=== PATIENT | female | born 1955 | race Caucasian/White ===

== ENCOUNTER 2018-11-20 12:20 | Emergency (ER) | payer OTHER ==
[2018-11-20 13:41] LABS: Urine Appearance Clear; Urine Bacteria Absent (Absent); Urine Bilirubin Negative (Negative); Urine Blood Negative (Negative); Urine Color Straw; Urine Glucose Negative (Negative); Urine Ketones Negative (Negative); Urine Nitrite Negative (Negative); Urine Protein Negative (Negative); Urine Red Blood Cell Absent (Absent); Urine Specific Gravity 1.004 (1.010-1.030); Urine Urobilinogen Negative (Negative); Urine White Blood Cell 2+(11-20/hpf) (Absent)
--- NOTE | 2018-11-20 13:49 | ED ---
GI/ HPI - HPI Summary HPI Summary: Patient is a 63 y/o F presenting to ED with complaints of dysuria, cloudy urine , and increased urgency of urination for the past few weeks. She also notes right lower back pain. Per triage, "Pt also c/o back pain but has chronic back pain so she is unsure if this is related or not". No fever, no N/V is reported. She denies PMHx of diabetes. Patient notes that she tried monostat, but reports that this only aggravated Sx. Patient has attempted to see OBGYN but states that she could not be seen until three months from present. On triage, pain is rated 6/10, nothing is noted to aggravate/alleviate Sx. Home medications and allergies are reviewed. - History of Current Complaint Chief Complaint: EDUrogenitalProblems Time Seen by Provider: 11/20/18 13:30 Stated Complaint: BURNING/CLOUDY WHEN URINATING Hx Obtained From: Patient Onset/Duration: Started Weeks Ago - a few weeks ago, Still Present Timing: Constant, Lasting Weeks - a few weeks ago Current Severity: Moderate - 6/10 Pain Intensity: 6 Location of Pain: Other - right lower back Pain Characteristics: Burning Associated Signs and Symptoms: Positive: Back Pain - right lower, Dysuria, Other : - increased urgency of urination, cloudy urine. Negative: Nausea, Vomiting, Fever Aggravating Factor(s): Nothing Alleviating Factor(s): Nothing - Allergy/Home Medications Allergies/Adverse Reactions: Allergies Allergy/AdvReac Type Severity Reaction Status Date / Time clarithromycin Allergy Unknown Verified 11/20/18 12:30 Reaction Details zolpidem [From Ambien] Allergy See Comment Verified 11/20/18 12:30 PMH/Surg Hx/FS Hx/Imm Hx Sensory History: Denies: Hx Legally Blind, Hx Deafness Opthamlomology History: Denies: Hx Legally Blind EENT History: Denies: Hx Deafness - Cancer History Hx Chemotherapy: No Hx Radiation Therapy: No - Surgical History Surgery Procedure, Year, and Place: spinal surgery, nasal surgery Infectious Disease History: No Infectious Disease History: Denies: Traveled Outside the [place] in Last 30 Days - Family History Known Family History: Positive: Other - cervical, bladder CA in mother - Social History Alcohol Use: None Substance Use Type: Reports: None Smoking Status (MU): Never Smoked Tobacco Review of Systems Negative: Fever Negative: Vomiting, Nausea Genitourinary: Other - POSITIVE - INCREASED FREQUENCY OF URINATION, CLOUDY URINE Positive: burning, dysuria Musculoskeletal: Other - POSITIVE - RIGHT LOWER BACK PAIN All Other Systems Reviewed And Are Negative: Yes Physical Exam - Summary Physical Exam Summary: Appearance: Well appearing, no pain distress Skin: warm, dry, reflects adequate perfusion Head/face: normal Eyes: EOMI, TERRY ENT: normal Neck: supple, non-tender Respiratory: CTA, breath sounds present Cardiovascular: RRR, pulses symmetrical Abdomen: non-tender, soft Musculoskeletal: normal, strength/ROM intact Neuro: normal, sensory motor intact, A&Ox3 Triage Information Reviewed: Yes Vital Signs On Initial Exam: Initial Vitals Temp Pulse Resp BP Pulse Ox 98.2 F 62 17 148/71 96 11/20/18 12:25 11/20/18 12:25 11/20/18 12:25 11/20/18 12:25 11/20/18 12:25 Vital Signs Reviewed: Yes Diagnostics - Vital Signs Vital Signs Temp Pulse Resp BP Pulse Ox 11/20/18 12:25 98.2 F 62 17 148/71 96 - Laboratory Result Diagrams: 11/20/18 13:49 11/20/18 13:49 Lab Statement: Any lab studies that have been ordered have been reviewed, and results considered in the medical decision making process. Re-Evaluation - Re-Evaluation First Eval Re-Evaluation Time: 16:07 Comment: Results of labs and tests were discussed with patient. She will be discharged to home and follow up with PCP. Patient is agreeable with this. GIGU Course/Dx - Course Course Of Treatment: Patient is a 63 y/o F presenting to ED with complaints of dysuria, cloudy urine, and increased urgency of urination for the past few weeks. She also notes right lower back pain. Per triage, "Pt also c/o back pain but has chronic back pain so she is unsure if this is related or not". No fever , no N/V is reported. She denies PMHx of diabetes. Patient notes that she tried monostat, but reports that this only aggravated Sx. Patient has attempted to see OBGYN but states that she could not be seen until three months from present. Physical exam is normal. Bloodwork, UA received. Gardnerella DNA Probe was negative for gardnerella and nikita. During ED course, patient received Bactrim Ds 800/160 Tab, 1 tab PO ONCE, and diflucan 150 mg Tab PO ONCE. Results of labs and tests were discussed with patient. She will be discharged to home and follow up with PCP. Patient is agreeable with this. - Diagnoses Differential Diagnoses - Female: Urinary Tract Infection, Vaginitis Provider Diagnoses: UTI (urinary tract infection) Discharge - Sign-Out/Discharge Documenting (check all that apply): Patient Departure - discharge Patient Received Moderate/Deep Sedation with Procedure: No - NO PROCEDURES DONE - Discharge Plan Condition: Stable Disposition: HOME Prescriptions: Sulfamethox/Trimethoprim DS* [Bactrim DS 800/160 TAB*] 1 tab PO DAILY #10 tab Patient Education Materials: Urinary Tract Infection in Women (ED) Referrals: Thuan Pelaez MD [Primary Care Provider] - 3 Days Additional Instructions: RETURN TO ED WITH ANY NEW OR WORSENING SYMPTOMS. FOLLOW UP WITH PRIMARY CARE PHYSICIAN WITHIN THREE DAYS. - Billing Disposition and Condition Condition: STABLE Disposition: Home - Attestation Statements Document Initiated by Kaleigh: Yes Documenting Scribe: ELEANOR FRASER Provider For Whom Kaleigh is Documenting (Include Credential): PRITESH CASTANEDA MD Scribe Attestation: ELEANOR Gomes, scribed for PRITESH CASTANEDA MD on 11/20/18 at 1728. Scribe Documentation Reviewed: Yes Provider Attestation: The documentation as recorded by the ELEANOR nguyen accurately reflects the service I personally performed and the decisions made by me, PRITESH CASTANEDA MD Status of Scribe Document: Viewed
[2018-11-20 14:02] LABS: ABS Basophils 0 10^3/ul (0-0.2); ABS Eosinophils 0.1 10^3/ul (0-0.6); ABS Lymphocytes 1.4 10^3/ul (1.0-4.8); ABS Monocytes 0.3 10^3/ul (0-0.8); ABS Nucleated RBC 0 10^3/ul; Eosinophil % 1.6 %; Hematocrit 42 % (35-47); Lymphocyte % 36.8 %; Mean Corpuscular HGB Conc 33 g/dl (31-36); Mean Corpuscular Hemoglobin 31 pg (27-31); Mean Corpuscular Volume 93 fL (80-97); Mean Platelet Volume 9.2 fL (7.4-10.4); Nucleated Red Blood Cells % 0.1; Platelet Count 217 10^3/ul (150-450); Red Blood Count 4.55 10^6/ul (4.00-5.40); Red Cell Distribution Width 13 % (10.5-15); White Blood Count 3.9 10^3/ul (3.5-10.8)
[2018-11-20 14:19] LABS: Albumin/Globulin Ratio 1.5 (1-3); Calcium 9.1 mg/dL (8.6-10.3); EGFR African American 115.5 (>60); EGFR Non-African American 95.4 (>60); Globulin 2.7 g/dL (2-4); Potassium 4.1 mmol/L (3.5-5.0); Total Bilirubin 0.3 mg/dL (0.2-1.0); Total Protein 6.7 g/dL (6.4-8.9)
--- NOTE | 2018-11-20 14:36 | PN ---
Progress Note - Progress Note Date of Service: 11/20/18 Note: Pelvic exam: Exam performed with Letty shetty. External exam shows erythema and irritation to vaginal opening. No lesions or discharge. Speculum reveals no discharge, lesions, or bleeding.
[2018-11-20] MEDS ORDERED: Sulfamethox/Trimethoprim DS 800/160* TAB PO ONE (16:04)
[2018-11-20] MEDS ORDERED: Fluconazole 150 MG TAB PO ONE (16:05)
[2018-11-20 16:24] VITALS: BP 155/70
[2018-11-21 13:07] LABS: Neisseria gonorrhoeae (GC) RNA Negative (Negative)
[2018-11-21 13:32] LABS: Trichomonas vaginalis Result Negative (Negative)
--- NOTE | 2018-11-23 06:38 | PN ---
Progress Note - Progress Note Date of Service: 11/20/18 Note: Urine culture final grew e. coli [id number] This is a low colony count However, as patient was symptomatic on presentation, she was discharged with Bactrim This is sensitive to e. -coli organism nothing further at this time
== END 2018-11-20 16:24 | disposition home or self-care (01) ==
LOC: ED 12:20
DX: N39.0 Urinary tract infection, site not specified (principal); B96.20 Unspecified Escherichia coli [E. coli] as the cause of diseases classified elsewhere; N76.0 Acute vaginitis
CPT/HCPCS: 36415; 80053; 81003; 81015; 83690; 85025; 87077; 87086; 87186; 87480; 87491; 87510; 87591; 87661; 99282; A9270-GY